=== PATIENT | male | born 1980 | race Caucasian/White ===

== ENCOUNTER 2016-08-01 16:07 | Emergency (ER) | payer SELFPAY ==
[~2016-08-01] VITALS: Ht 185.4 cm; Wt 68.2 kg
[~2016-08-01 16:07] MED LIST: ADVIL200 MG PO; BACTRIM DS 8001 TAB PO; CEPHALEXIN500 M1 PO; DAZIDOX10 MG PO; DAZIDOX20 MG PO; DILAUDID 4MG TAB4 MG PO; FLEXERIL 1010 MG/TAB PO; LORTAB 7.5/5001 TAB PO; NO HOME MEDICATIONS; PERCOCET 325 MG1 TA2 PO; PERCOCET 5/321 UDTAB PO; ULTRAM 50MG TAB50 MG PO
[2016-08-01 16:11] VITALS: BP 126/67; TEMP 98.9
[2016-08-01] MEDS ORDERED: PERCOCET 325 MG1 TA2 PO (17:33)
[2016-08-01 17:44] VITALS: PULSE 76
== END 2016-08-01 17:45 | disposition home or self-care (01) ==
LOC: COL.ER 16:07
DX: S05.01XA Injury of conjunctiva and corneal abrasion without foreign body, right eye, initial encounter (principal); X58.XXXA Exposure to other specified factors, initial encounter

== ENCOUNTER 2016-10-07 17:14 | Emergency (ER) | payer SELFPAY ==
[~2016-10-07] VITALS: Ht 185.4 cm; Wt 68.2 kg
[2016-10-07 17:18] VITALS: BP 130/84; PULSE 105; TEMP 98
== END 2016-10-07 18:07 | disposition home or self-care (01) ==
LOC: COL.ER 17:14
DX: G89.29 Other chronic pain (principal); M54.42 Lumbago with sciatica, left side; M54.41 Lumbago with sciatica, right side; Z79.891 Long term (current) use of opiate analgesic
CPT/HCPCS: J1170; J2360

== ENCOUNTER 2016-11-29 10:22 | Emergency (ER) | payer SELFPAY ==
[~2016-11-29] VITALS: Ht 185.4 cm; Wt 68.2 kg
[2016-11-29 10:26] VITALS: BP 123/68; PULSE 96; TEMP 98.5
== END 2016-11-29 12:10 | disposition home or self-care (01) ==
LOC: COL.ER 10:22
DX: M54.5 Low back pain (principal); G89.29 Other chronic pain; F32.9 Major depressive disorder, single episode, unspecified; F41.9 Anxiety disorder, unspecified; Z79.891 Long term (current) use of opiate analgesic
CPT/HCPCS: J1885; J2360

== ENCOUNTER 2016-11-30 12:53 | Emergency (ER) | payer SELFPAY ==
[~2016-11-30] VITALS: Ht 185.4 cm; Wt 68.2 kg
[2016-11-30 12:55] VITALS: BP 119/76; PULSE 89; TEMP 98.5
== END 2016-11-30 14:13 | disposition home or self-care (01) ==
LOC: COL.ER 12:53
DX: G89.29 Other chronic pain (principal); M54.5 Low back pain
CPT/HCPCS: J1170; J1885; J2550

== ENCOUNTER 2017-03-16 20:44 | Emergency (ER) | payer SELFPAY ==
[~2017-03-16] VITALS: Ht 185.4 cm; Wt 63.0 kg
[2017-03-16 21:11] VITALS: BP 115/74; PULSE 88; TEMP 99.2
== END 2017-03-16 22:30 | disposition left against medical advice (07) ==
LOC: COL.ER 20:44
DX: G89.29 Other chronic pain (principal); M54.9 Dorsalgia, unspecified

== ENCOUNTER 2017-07-15 10:23 | Emergency (ER) | payer SELFPAY ==
[~2017-07-15] VITALS: Ht 185.4 cm; Wt 68.2 kg
[2017-07-15 10:34] VITALS: BP 145/69; PULSE 65; TEMP 99.2
[2017-07-15] MEDS ORDERED: CEPHALEXIN500 M1 PO (11:24)
== END 2017-07-15 11:53 | disposition home or self-care (01) ==
LOC: COL.ER 10:23
DX: S41.011A Laceration without foreign body of right shoulder, initial encounter (principal); F17.210 Nicotine dependence, cigarettes, uncomplicated; W26.8XXA Contact with other sharp object(s), not elsewhere classified, initial encounter; Y92.009 Unspecified place in unspecified non-institutional (private) residence as the place of occurrence of the external cause

== ENCOUNTER 2017-12-17 10:36 | Emergency (ER) | payer SELFPAY ==
[~2017-12-17] VITALS: Ht 185.4 cm; Wt 65.9 kg
[2017-12-17 10:41] VITALS: BP 131/77; TEMP 98.2
[2017-12-17] MEDS ORDERED: ROXICODONE15 MG PO (11:17)
[2017-12-17] MEDS ORDERED: FLEXERIL 1010 MG/TAB PO (12:20)
[2017-12-17 12:45] VITALS: PULSE 69
== END 2017-12-17 12:45 | disposition home or self-care (01) ==
LOC: COL.ER 10:36
DX: G89.29 Other chronic pain (principal); M54.6 Pain in thoracic spine; M54.5 Low back pain; F17.210 Nicotine dependence, cigarettes, uncomplicated
CPT/HCPCS: J1170; J2360; J2550

== ENCOUNTER 2018-02-08 12:31 | Emergency (ER) | payer SELFPAY ==
[~2018-02-08] VITALS: Ht 185.4 cm; Wt 63.6 kg
[~2018-02-08 12:31] MED LIST changes: +ROXICODONE15 MG PO
[2018-02-08 12:39] VITALS: TEMP 98.6
[2018-02-08] MEDS ORDERED: CEPHALEXIN500 M1 PO (16:28)
[2018-02-08 16:50] VITALS: BP 111/67; PULSE 75
== END 2018-02-08 16:50 | disposition home or self-care (01) ==
LOC: COL.ER 12:31
DX: K02.9 Dental caries, unspecified (principal); M79.672 Pain in left foot; R22.9 Localized swelling, mass and lump, unspecified; F17.210 Nicotine dependence, cigarettes, uncomplicated

== ENCOUNTER 2018-10-12 08:47 | Emergency (ER) | payer SELFPAY ==
[~2018-10-12] VITALS: Ht 185.4 cm; Wt 70.9 kg
[2018-10-12 08:51] VITALS: BP 128/80
[2018-10-12] MEDS ORDERED: ROXICODONE15 MG PO (08:56)
[2018-10-12] MEDS ORDERED: DILAUDID 2MG TAB2 MG PO (09:03)
[2018-10-12] MEDS ORDERED: MEDROL 4MG DOSPA4 MG PO (10:27)
[2018-10-12] MEDS ORDERED: ZITHROMAX Z PA250 MG PO (10:28)
[2018-10-12 11:04] VITALS: PULSE 74; TEMP 98.2
== END 2018-10-12 11:04 | disposition home or self-care (01) ==
LOC: COL.ER 08:47
DX: J11.1 Influenza due to unidentified influenza virus with other respiratory manifestations (principal); J20.9 Acute bronchitis, unspecified; G89.29 Other chronic pain; M54.9 Dorsalgia, unspecified; F11.10 Opioid abuse, uncomplicated; F17.210 Nicotine dependence, cigarettes, uncomplicated; Z88.8 Allergy status to other drugs, medicaments and biological substances

== ENCOUNTER 2019-01-24 11:22 | Emergency (ER) | payer SELFPAY ==
[~2019-01-24] VITALS: Ht 185.4 cm; Wt 65.9 kg
[~2019-01-24 11:22] MED LIST changes: +DILAUDID 2MG TAB2 MG PO; +MEDROL 4MG DOSPA4 MG PO; +ZITHROMAX Z PA250 MG PO
[2019-01-24 11:28] VITALS: BP 132/80; TEMP 98.7
[2019-01-24] MEDS ORDERED: CLEOCIN HC150 MG/CAP PO (11:45)
[2019-01-24] MEDS ORDERED: NORCO 325 MG-51 TAB PO (11:46)
[2019-01-24 12:41] VITALS: PULSE 96
== END 2019-01-24 12:44 | disposition home or self-care (01) ==
LOC: COL.ER 11:22
DX: K12.2 Cellulitis and abscess of mouth (principal)

== ENCOUNTER 2019-06-01 10:05 | Emergency (ER) | payer SELFPAY ==
[~2019-06-01] VITALS: Ht 185.4 cm; Wt 65.9 kg
[~2019-06-01 10:05] MED LIST changes: +CLEOCIN HC150 MG/CAP PO; +NORCO 325 MG-51 TAB PO
[2019-06-01 10:09] VITALS: TEMP 98.7
[2019-06-01] MEDS ORDERED: DOXYCYCLINE 10100 MG PO (10:56)
[2019-06-01 13:13] LABS: COLLECTION METHOD CLEAN CATCH
[2019-06-01 13:21] LABS: PH 5 (5-8); SQUAMOUS EPITHELIAL None Seen /hpf; URINE APPEARANCE Clear; URINE BACTERIA None Seen /hpf; URINE BILIRUBIN Negative (NEGATIVE); URINE BLOOD 1+ (NEGATIVE); URINE COLOR Yellow; URINE GLUCOSE Negative (NEGATIVE); URINE KETONE Negative (NEGATIVE); URINE LEUKOCYTE ESTERASE Negative (NEGATIVE); URINE NITRATE Negative (NEGATIVE); URINE PROTEIN(semi-quant) Negative (NEGATIVE); URINE RBC 0-2 /hpf; URINE UROBILINOGEN Negative (NEGATIVE)
[2019-06-01 13:44] VITALS: BP 122/72; PULSE 78
== END 2019-06-01 13:45 | disposition home or self-care (01) ==
LOC: COL.ER 10:05
PROVIDERS: Emergency Medicine
DX: N45.1 Epididymitis (principal); N43.3 Hydrocele, unspecified; F17.210 Nicotine dependence, cigarettes, uncomplicated
CPT/HCPCS: A4216; J0696; J1170; J1630; J2270; J2405; J7030

== ENCOUNTER 2020-09-28 10:36 | Emergency (ER) | payer SELFPAY ==
[~2020-09-28] VITALS: Ht 185.4 cm; Wt 68.2 kg
[~2020-09-28 10:36] MED LIST changes: +DOXYCYCLINE 10100 MG PO
[2020-09-28 10:45] VITALS: TEMP 97.9
[2020-09-28] MEDS ORDERED: AMOXICILLIN 8751 TAB PO (11:47)
[2020-09-28 12:17] VITALS: BP 116/80; PULSE 96
== END 2020-09-28 12:18 | disposition home or self-care (01) ==
LOC: COL.ER 10:36
DX: K04.7 Periapical abscess without sinus (principal); Z88.8 Allergy status to other drugs, medicaments and biological substances
CPT/HCPCS: J1885

== ENCOUNTER 2020-12-13 12:20 | Emergency (ER) | payer SELFPAY ==
[~2020-12-13] VITALS: Ht 185.4 cm; Wt 63.6 kg
[~2020-12-13 12:20] MED LIST changes: +AMOXICILLIN 8751 TAB PO
[2020-12-13 12:33] VITALS: TEMP 98.6
[2020-12-13] MEDS ORDERED: DECADRON6 MG PO (13:34)
[2020-12-13 14:50] VITALS: BP 99/64; PULSE 80
== END 2020-12-13 14:40 | disposition home or self-care (01) ==
LOC: COL.ER 12:20
DX: U07.1 COVID-19 (principal)
CPT/HCPCS: J1100; J7030